=== PATIENT | male | born 1990 | race Caucasian/White ===

== ENCOUNTER 2019-05-22 13:01 | Emergency (ER) | payer BC ==
--- NOTE | 2019-05-22 13:28 | EDM.PDOC ---
ED HPI GENERAL MEDICAL PROBLEM - General Chief Complaint: Lower Extremity Injury/Pain Stated Complaint: LFT LEG Time Seen by Provider: 05/22/19 13:28 Source of Information: Reports: Patient History Limitations: Reports: No Limitations - History of Present Illness INITIAL COMMENTS - FREE TEXT/NARRATIVE: HISTORY AND PHYSICAL: History of present illness: Patient is a 28-year-old male presents to the ED with complaint of left calf pain. Patient had a disketomy with Dr. Laird in [place] 2 weeks ago. He states this morning he woke up with pain in his left calf. He called his surgeon 's office and they recommended he be evaluated for DVT. Patient denies worsening back pain, saddle anesthesia, lower extremity weakness, bowel or bladder incontinence, fevers, chills, chest pain or shortness of breath. Review of systems: As per history of present illness and below otherwise all systems reviewed and negative. Past medical history: As per history of present illness and as reviewed below otherwise noncontributory. Surgical history: As per history of present illness and as reviewed below otherwise noncontributory. Social history: No reported history of drug or alcohol abuse. Family history: As per history of present illness and as reviewed below otherwise noncontributory. Physical exam: General: Patient sitting comfortably in no acute distress and nontoxic appearing HEENT: Atraumatic, normocephalic, pupils reactive, negative for conjunctival pallor or scleral icterus, mucous membranes moist, throat clear, neck supple, nontender, trachea midline. No meningeal signs. Lungs: Clear to auscultation, breath sounds equal bilaterally, chest nontender. Heart: S1S2, regular, negative for clicks, rubs, or overt murmur. Abdomen: Soft, nondistended, nontender. Negative for masses or hepatosplenomegaly. Negative for costovertebral tenderness. No rigidity, rebound , guarding. Pelvis: Stable nontender. Genitourinary: Deferred. Rectal: Deferred. Extremities: No lower extremity swelling or erythema or warmth. Pain to palpation of left lateral calf. Neurovascular unremarkable. Neuro: Awake, alert, oriented. Cranial nerves II through XII unremarkable. Cerebellum unremarkable. Motor and sensory unremarkable throughout. Exam nonfocal. Notes: Diagnostics: Venous doppler US left LE Therapeutics: [] Prescriptions: Impression: Left lower extremity pain Definitive disposition and diagnosis as appropriate pending reevaluation and review of above. Left Lower Leg Pain Score (Numeric/FACES): 6 - Related Data Allergies Allergy/AdvReac Type Severity Reaction Status Date / Time No Known Allergies Allergy Verified 05/22/19 13:03 Home Meds: Home Meds Hydrocodone/Acetaminophen [Hydrocodon-Acetaminophen 5-325] 1 each PO ASDIRECTED PRN 05/22/19 [History] Ibuprofen [Motrin] 800 mg PO ASDIRECTED PRN 05/22/19 [History] [place]-3/DHA/Epa/Fish Oil [Fish Oil 1,000 mg Softgel] 1 each PO DAILY 05/22/19 [ History] Sennosides [Senna] 8.6 mg PO BEDTIME 05/22/19 [History] Past Medical History Endocrine/Metabolic History: Reports: Other (See Below) Other Endocrine/Metabolic History: discectomy - Infectious Disease History Infectious Disease History: Reports: Chicken Pox - Past Surgical History HEENT Surgical History: Reports: Oral Surgery Social & Family History - Family History Family Medical History: Noncontributory - Tobacco Use Smoking Status *Q: Former Smoker Used Tobacco, but Quit: Yes Month/Year Tobacco Last Used: 2013 - Caffeine Use Caffeine Use: Reports: Coffee, Energy Drinks, Soda, Tea - Recreational Drug Use Recreational Drug Use: Yes Recreational Drug Type: Reports: Marijuana/Hashish Review of Systems - Review of Systems Review Of Systems: Comprehensive ROS is negative, except as noted in HPI. ED EXAM, GENERAL - Physical Exam Exam: See Below (see dictation) Course - Vital Signs Last Recorded V/S: Last Vital Signs Temp 96.4 F 05/22/19 13:05 Pulse 73 05/22/19 13:05 Resp 18 05/22/19 13:05 BP 113/74 05/22/19 13:05 Pulse Ox 94 L 05/22/19 13:05 Departure - Departure Time of Disposition: 14:31 Disposition: Home, Self-Care 01 Condition: Good Clinical Impression: Lower extremity pain, left - Discharge Information Referrals: Cheo Washington MD [Primary Care Provider] - Forms: ED Department Discharge Additional Instructions: The following information is given to patients seen in the emergency department who are being discharged to home. This information is to outline your options for follow-up care. We provide all patients seen in our emergency department with a follow-up referral. The need for follow-up, as well as the timing and circumstances, are variable depending upon the specifics of your emergency department visit. If you don't have a primary care physician on staff, we will provide you with a referral. We always advise you to contact your personal physician following an emergency department visit to inform them of the circumstance of the visit and for follow-up with them and/or the need for any referrals to a consulting specialist. The emergency department will also refer you to a specialist when appropriate. This referral assures that you have the opportunity for follow-up care with a specialist. All of these measure are taken in an effort to provide you with optimal care, which includes your follow-up. Under all circumstances we always encourage you to contact your private physician who remains a resource for coordinating your care. When calling for follow-up care, please make the office aware that this follow-up is from your recent emergency room visit. If for any reason you are refused follow-up, please contact the [facility] Emergency Department at and asked to speak to the emergency department charge nurse. [facility] [address] [place] [address] [place] [address] Follow up with primary care provider Return to ED as needed as discussed Sepsis Event Note - Evaluation Sepsis Screening Result: No Definite Risk - Focused Exam Vital Signs: Vital Signs Temp Pulse Resp BP Pulse Ox 05/22/19 13:05 96.4 F 73 18 113/74 94 L Date Exam was Performed: 05/22/19 Time Exam was Performed: 14:32
--- NOTE | 2019-05-22 14:28 | US ---
INDICATION: Left calf numbness and cramping. Back surgery 2 weeks ago. TECHNIQUE: Ultrasound venous duplex lower left extremity. Compression venous exam was performed using nugent-scale, color Doppler, and spectral waveform analysis. COMPARISON: None FINDINGS: Visualized left common femoral, deep femoral, superficial femoral, popliteal and tibial veins are patent, without evidence of venous thrombosis. Soft tissues elsewhere as imaged are unremarkable. IMPRESSION: No evidence of left lower extremity deep venous thrombosis. Dictated by Migel Mchugh MD @ 05/22/2019 2:26:50 PM Dictated by: Migel Mchugh MD @ 05/22/2019 14:26:57 (Electronically Signed)
== END 2019-05-22 14:38 | disposition home or self-care (01) ==
LOC: MW.ED 13:01
DX: M79.662 Pain in left lower leg (principal); Z87.891 Personal history of nicotine dependence
CPT/HCPCS: 93971-26-LT; 93971-LT; 99283-25